=== PATIENT | male | born 1965 | race Caucasian/White ===

== ENCOUNTER 2025-05-24 09:38 | Day surgery (SDC) | payer OTHER, SELFPAY ==
[2025-05-24 11:03] VITALS: BMI 33.2
--- NOTE | 2025-05-24 11:53 | ITS.CL.CARDI ---
Field Care Manager - Cardioversion
Cardioversion
Procedure Report:
Date of Procedure:
Procedure: Cardioversion
Indication: Symptomatic atrial fibrillation
Performing Physician: Rita Gomez MD
Technique: The patient was brought to the holding area. Signed informed consent was obtained. A time out was called and performed. The patient was anesthetized by the anesthesia service. Anticoagulation status was reviewed and appropriate. R2 pads
were placed anteriorly and posteriorly. A 360 J synchronized biphasic shock restored normal sinus rhythm without significant bradycardia. There were no complications.
Conclusion: Uncomplicated cardioversion from atrial fibrillation to sinus rhythm.
Recommendation: Routine post cardioversion care. Continue manager intermediate anticoagulation.
== END 2025-05-24 12:24 | disposition home or self-care (01) ==
LOC: CATH 09:38
PROVIDERS: ATTENDING PHYSICIAN Internal Medicine Interventional Cardiology; PRIMARYCARE PHYSICIAN Family Medicine; REFERRING PHYSICIAN Internal Medicine Cardiovascular Disease
DX: I48.0 Paroxysmal atrial fibrillation (principal); Z79.01 Long term (current) use of anticoagulants
CPT/HCPCS: 92960; 93005; 93312; 93320; 93325